=== PATIENT | male | born 1955 | race Caucasian/White ===

== ENCOUNTER 2017-06-04 00:56 | Emergency (ER) | payer SELFPAY ==
--- NOTE | 2017-06-04 01:23 | EDM.PDOC ---
ED HPI GENERAL MEDICAL PROBLEM - General Chief Complaint: Respiratory Problem Stated Complaint: SOB/CONGESTION Time Seen by Provider: 06/04/17 01:13 - History of Present Illness INITIAL COMMENTS - FREE TEXT/NARRATIVE: 61-year-old male presents emergency room with breathing difficulties. Patient has a 2-3 day history of shortness of breath and breathing difficulties. He said chills he's been feverish and he said a productive cough bringing up off color thick sputum the patient has cut his smoking back from 2 packs a day to about 2 cigarettes a day during this time. Patient has had decreased energy he did not feel like taking his medications mostly for hypertension earlier today. Patient has not coughed up any blood however he is bringing up increasing amounts of productive sputum. Patient denies any chest pain chest pressure or worsening edema. He is not having any abdominal pain no nausea vomiting diarrhea constipation - Related Data Allergies Allergy/AdvReac Type Severity Reaction Status Date / Time Penicillins Allergy Anaphylactic Verified 06/04/17 01:06 Shock Home Meds: Home Meds Doxycycline Calcium [IMW: Doxycycline] 100 mg PO BID #20 cap 06/04/17 [Rx] Furosemide [Lasix] 20 mg PO BIDDIURETIC 06/04/17 [History] Lisinopril 40 mg PO DAILY 06/04/17 [History] Metoprolol Succinate [Toprol Xl] 150 mg PO DAILY 06/04/17 [History] Simvastatin [Zocor] 40 mg PO BEDTIME 06/04/17 [History] ED ROS GENERAL - Review of Systems Review Of Systems: See Below Constitutional: Reports: No Symptoms HEENT: Reports: No Symptoms Respiratory: Reports: Shortness of Breath, Cough, Sputum Cardiovascular: Reports: Blood Pressure Problem. Denies: Chest Pain, Dyspnea on Exertion, Lightheadedness, Palpitations GI/Abdominal: Reports: No Symptoms, Abdominal Pain. Denies: Constipation, Diarrhea, Nausea, Vomiting : Reports: No Symptoms Skin: Reports: No Symptoms Neurological: Reports: No Symptoms Psychiatric: Reports: No Symptoms Hematologic/Lymphatic: Reports: No Symptoms ED EXAM, GENERAL - Physical Exam Exam: See Below Exam Limited By: No Limitations General Appearance: Alert, No Apparent Distress Eye Exam: Bilateral Eye: Normal Inspection Ears: Normal External Exam, Normal Canal, Hearing Grossly Normal, Normal TMs Nose: Normal Inspection Throat/Mouth: Normal Inspection, Normal Lips, Normal Gums, Normal Oropharynx, Normal Voice, No Airway Compromise Head: Atraumatic, Normocephalic Neck: Normal Inspection, Supple, Non-Tender, Full Range of Motion. No: Lymphadenopathy (L), Lymphadenopathy (R) Respiratory/Chest: No Respiratory Distress, Lungs Clear, Normal Breath Sounds Cardiovascular: Regular Rate, Rhythm, No Murmur, Other (Scant edema noted in the lower extremities) GI/Abdominal: Normal Bowel Sounds, Soft, Non-Tender Back Exam: Normal Inspection. No: CVA Tenderness (L), CVA Tenderness (R) Neurological: Alert, Oriented, Normal Cognition Skin Exam: Warm, Dry, Intact, Normal Color Lymphatic: No Adenopathy Course - Vital Signs Last Recorded V/S: Last Vital Signs Temp 37.2 C 06/04/17 01:01 Pulse 93 06/04/17 02:46 Resp 25 H 06/04/17 01:01 BP 204/125 H 06/04/17 01:01 Pulse Ox 85 L 06/04/17 01:01 - Orders/Labs/Meds Orders: Active Orders 24 hr Category Date Time Status EKG Documentation Completion [RC] STAT Care 06/04/17 01:27 Active RT Aerosol Therapy [RC] ASDIRECTED Care 06/04/17 02:27 Active Chest 2V [CR] Stat Exams 06/04/17 01:27 Taken Chest wo Cont [CT] Stat Exams 06/04/17 03:30 Taken Labs: Laboratory Tests 06/04/17 06/04/17 06/04/17 Range/Units 01:10 01:10 02:37 WBC 5.23 (4.23-9.07) K/mm3 RBC 4.97 (4.63-6.08) M/mm3 Hgb 15.0 (13.7-17.5) gm/L Hct 44.5 (40.1-51.0) % MCV 89.5 (79.0-92.2) fl MCH 30.2 (25.7-32.2) pg MCHC 33.7 (32.2-35.5) g/dl RDW Std Deviation 47.8 H (35.1-43.9) fL Plt Count 106 L (163-337) K/mm3 MPV 11.1 (9.4-12.3) fl Neutrophils % (Manual) 78 H (40-60) % Band Neutrophils % 0 (0-10) % Lymphocytes % (Manual) 8 L (20-40) % Atypical Lymphs % 0 % Monocytes % (Manual) 14 H (2-10) % Eosinophils % (Manual) 0 L (0.8-7.0) % Basophils % (Manual) 0 L (0.2-1.2) Platelet Estimate Decreased Plt Morphology Comment Normal RBC Morph Comment n Puncture Site Lt radial ABG pH 7.47 H (7.35-7.45) ABG pCO2 33.1 L (35.0-45.0) mmHg ABG pO2 53.0 L (80.0-100.0) mmHg ABG HCO3 23.5 (22.0-26.0) meq/L ABG O2 Saturation 91.2 L (96.0-97.0) % ABG Base Excess 0.9 (-2-2.0) A-a Gradient 40 mmHg O2 Delivery Device Room air Oxygen Flow Rate 0.0 FiO2 0.00 L (21.00-100.00) % Sodium 136 (136-145) mEq/L Potassium 3.7 (3.5-5.1) mEq/L Chloride 101 (98-107) mEq/L Carbon Dioxide 25 (21-32) mEq/L Anion Gap 13.7 (5-15) BUN 17 (7-18) mg/dL Creatinine 1.2 (0.7-1.3) mg/dL Est Cr Clr Drug Dosing 79.37 mL/min Estimated GFR (MDRD) > 60 (>60) mL/min BUN/Creatinine Ratio 14.2 (14-18) Glucose 99 (80-115) mg/dL Calcium 8.5 (8.5-10.1) mg/dL Total Bilirubin 0.4 (0.2-1.0) mg/dL AST 38 H (15-37) U/L ALT 33 (16-63) U/L Alkaline Phosphatase 92 (46-116) U/L Troponin I 0.046 (0.00-0.056) ng/mL NT-Pro-B Natriuret Pep 455 H (0-125) pg/mL Total Protein 7.6 (6.4-8.2) g/dl Albumin 3.5 (3.4-5.0) g/dl Globulin 4.1 gm/dL Albumin/Globulin Ratio 0.9 L (1-2) Meds: Medications Discontinued Medications Generic Name Dose Route Start Last Admin Trade Name Chase PRN Reason Stop Dose Admin Albuterol/Ipratropium 3 ml 06/04/17 02:27 06/04/17 02:45 Duoneb 3.0-0.5 Mg/3 Ml NEB 06/04/17 02:28 3 ml ONETIME ONE Administration - Re-Assessments/Exams Free Text/Narrative Re-Assessment/Exam: 06/04/17 04:22 Laboratory evaluation nonsuggestive of infectious process. Troponin normal. ProBNP is elevated that he's been off his Lasix for a day. The patient hasn't albuterol inhaler but has not been using we discussed the importance of using this 2 puffs every 4 hours while awake chest x-ray did not show an infiltrate showed advanced lung disease however with his productive cough I did go ahead and get a CT which was negative for acute changes. Patient be discharged using his albuterol 2 puffs every 4 hours he is to stay on all his blood pressure medications and his Lasix as directed he'll be treated with 10 day course of doxycycline Departure - Departure Time of Disposition: 04:24 Disposition: Home, Self-Care 01 Clinical Impression: Emphysema of lung, Bronchitis - Discharge Information Prescriptions: Doxycycline Calcium [IMW: Doxycycline] 100 mg PO BID #20 cap Referrals: PCP,Not In Area [Primary Care Provider] - Forms: ED Department Discharge Additional Instructions: Return to the emergency room with any questions problems worsening symptoms. Follow-up in the Hospital clinic in 2 days for recheck [phone]. Use your albuterol inhaler 2 puffs every 4 hours while awake. You have been started on doxycycline this is an antibiotic take it twice daily until all gone - My Orders Last 24 Hours: My Active Orders 06/04/17 01:27 EKG Documentation Completion [RC] STAT Chest 2V [CR] Stat 06/04/17 02:27 RT Aerosol Therapy [RC] ASDIRECTED 06/04/17 03:30 Chest wo Cont [CT] Stat - Assessment/Plan Last 24 Hours: My Active Orders 06/04/17 01:27 EKG Documentation Completion [RC] STAT Chest 2V [CR] Stat 06/04/17 02:27 RT Aerosol Therapy [RC] ASDIRECTED 06/04/17 03:30 Chest wo Cont [CT] Stat
[2017-06-04] MEDS ORDERED: Albuterol/Ipratropium 3.0-0.5 MG/3 ML Neb Soln NEB ONE (02:27)
[2017-06-04] MEDS ORDERED: Doxycycline 100 MG Cap PO ONE (04:23)
--- NOTE | 2017-06-04 07:02 | CR ---
Chest: Two views of the chest were obtained. Comparison: No prior chest x-ray. Heart size is normal. Tortuous thoracic aorta is seen. Lungs are hyperinflated compatible with emphysematous change. Lung markings are increased most likely due to mild fibrosis. Degenerative spurring noted within the spine. Impression: 1. Emphysematous change and mild fibrosis. 2. Nothing acute is appreciated. Diagnostic code #3 Agree with preliminary report issued by [employer] ([facility] preliminary report dictated on 06/04/17, 3:53 AM Central Time)
--- NOTE | 2017-06-04 07:46 | CT ---
CT chest Technique: Multiple axial sections through the chest were obtained. Intravenous contrast was not utilized. Findings: Emphysematous changes are seen most prominent within the upper lungs. No acute pulmonary densities are seen. No pleural effusions or pneumothorax is seen. Ascending aorta is slightly aneurysmal at 4.5 cm. The descending aorta is slightly aneurysmal at 3.8 cm. Mild coronary artery calcification is seen. Several mediastinal lymph nodes are seen believed to be within normal limits. No axillary adenopathy is identified. Bone window settings show diffuse degenerative spurring within the thoracic and upper lumbar spine. Impression: 1. Emphysematous change. 2. Slightly aneurysmal thoracic aorta. 3. Other incidental findings. Diagnostic code #3 Agree with preliminary report issued by [facility] ([facility] preliminary report dictated on 06/04/17, 5:13 AM Central Time)
== END 2017-06-04 04:36 | disposition home or self-care (01) ==
LOC: JD.ED 00:56
DX: J44.9 Chronic obstructive pulmonary disease, unspecified (principal); Z88.0 Allergy status to penicillin; Z79.899 Other long term (current) drug therapy
CPT/HCPCS: 36415; 36600; 71046; 71250; 80053; 82803; 83880; 84484; 85025; 87804; 93005; 94640; 99285; A9270; 99284